=== PATIENT | female | born 1980 ===

== ENCOUNTER 2019-04-24 03:35 | Observation (INO) ==
[2019-04-24] MEDS ORDERED: traZODone 50 MG TABLET PO PRN (03:46)
[2019-04-24] MEDS ORDERED: *HR* LORazepam 2 MG/ML VIAL IM PRN (03:46)
[2019-04-24] MEDS ORDERED: hydrOXYzine pamoate 25 MG CAPSULE PO PRN (03:46)
[2019-04-24] MEDS ORDERED: *HR* LORazepam 1 MG TABLET PO PRN (03:46)
[2019-04-24] MEDS ORDERED: Haloperidol Lactate 5 MG/ML VIAL IM PRN (03:46)
[2019-04-24] MEDS ORDERED: Mag Hydrox/Al Hydrox/Simeth 30 ML UDC PO PRN (03:46)
[2019-04-24] MEDS ORDERED: Ibuprofen 400 MG TABLET PO PRN (03:46)
[2019-04-24] MEDS ORDERED: MOM Conc 10 ML UD.LIQ PO PRN (03:46)
[2019-04-24 09:15] VITALS: BP 131/68
[2019-04-24] MEDS ORDERED: Lisinopril 20 MG TABLET PO SCH (09:30)
[2019-04-24] MEDS ORDERED: Lurasidone 20 MG TABLET PO SCH (09:30)
[2019-04-24] MEDS ORDERED: Vitamin B Complex/Vit C/Vit E 1 EACH TABLET PO SCH (09:30)
[2019-04-24] MEDS ORDERED: Desvenlafaxine Succinate [Pristiq] 100 MG PO SCH (09:30)
[2019-04-24] MEDS ORDERED: BuPROPion XL (24 HR) 150 MG TABLET PO SCH (09:30)
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
[2019-04-25] MEDS ORDERED: Pyridoxine (B-6) 50 MG TABLET PO SCH (09:00)
[2019-04-25] MEDS ORDERED: (Linagliptin [Tradjenta] 5 MG) PO SCH (09:00)
== END 2019-04-24 18:50 | disposition home or self-care (01) ==
LOC: 1ANU 03:35 → INTOOBSV 03:35 → 1ANU 03:39
PROVIDERS: ADMIT Psychiatry & Neurology Psychiatry; ATTEND Psychiatry & Neurology Psychiatry